=== PATIENT | male | born 1995 | race Caucasian/White ===

== ENCOUNTER 2020-10-09 15:00 | Emergency (ER) | payer SELFPAY ==
[2020-10-09 18:08] VITALS: BP 144/75; PULSE 57; RESP 16; TEMP 37.5; O2SAT 95; BMI 39.1
--- NOTE | 2020-10-09 19:29 | XR_ITS ---
EXAMINATION: XR KNEE, LEFT CLINICAL INFORMATION: Popping pain in the knee COMPARISON: 10/31/2015 TECHNIQUE: Four views of the left knee. FINDINGS: Bones and soft tissues are normal aside from some tiny marginal osteophytes on the tibial plateau slightly worse than in 2015. No significant compartmental narrowing is seen. No fracture or joint effusion. Alignment is anatomic. No abnormal soft tissue calcification. XR/XR knee LT 4V IMPRESSION: Some minimal marginal tibial osteophytes.
--- NOTE | 2020-10-09 19:30 | ED.LOWEXIN ---
HPI - Extremity Injury (Lower) General Chief Complaint: Extremity Injury, Lower Stated Complaint: L KNEE PAIN,HEARD POP WHILE WALKING,NO DEFORMITY Time Seen by Provider: 10/09/20 19:29 Source: patient Mode of arrival: wheelchair Limitations: no limitations History of Present Illness HPI Narrative: 24 y/o male presenting with left knee pain after he heard a popping sound while he was walking today. After a few moments he was able to bear weight and ambulate. He has a history of ACL tear and he states this does not feel similar. No ankle or hip pain. Patient reports mild swelling of the knee and pain on the inside when he touches it or straightens it out all the way. MD complaint: knee injury Injury: Left: knee (pain with extension and flexsion ) Type of Injury: unknown Place: home Severity: moderate Severity scale (1-10): 4 Relieving factors: nothing Exacerbating factors: weight bearing, movement and palpation Context: walking Associated symptoms: snap/pop sensation Other symptoms: none Related Data Previous Rx's Medication Instructions Recorded ibuprofen 600 mg PO Q8H PRN #20 tab 10/09/20 Allergies Allergy/AdvReac Type Severity Reaction Status Date / Time No Known Allergies Allergy Verified 10/09/20 19:11 [No Known Allergies*] Review of Systems Review of Systems: Cardiovascular: No Chest Pain, No SOB Respiratory: No Cough, No Sputum, Musculoskeletal: + joint pain, No Myalgias Skin: No Skin Lesions, No rash Neuro: No Weakness, No Numbness Heme/Lymph: No Bruising PMFSH Past Medical History Attestation statement: The following information was validated with the patient. Medical History (Updated 10/09/20 @ 20:27 by JUAN Aviles) No known health problems Social History Social History Advance Directives: No Advance Directives Information Provided: No Physical Exam Vital Signs: Vital Signs: Last Vital Signs Temp 99.5 F 10/09/20 18:08 Pulse 57 10/09/20 18:08 Resp 16 10/09/20 18:08 BP 144/75 H 10/09/20 18:08 Pulse Ox 95 10/09/20 18:08 Body Mass Index 39.1 Appearance: Alert. Oriented X3. No acute distress. HEENT: normal inspection Respiratory: No respiratory distress. Skin: Skin warm and dry. Normal skin color. Normal skin turgor. No rashes. Extremities: left knee with mild generalized swelling, tenderness along medial joint line. anterior drawer test negative. no joint laxity. ambulates with very mild limp. Neuro: Oriented X 3. No motor deficit. No sensory deficit. Course Course Course Narrative: 24 y/o here with left knee pain after hearing a pop while walking. Able to ambulate and bear weight. Mild swelling. XR showed minimal marginal tibial ostephytes. Etiology of pain likely MCL sprain. Possible tear or menincus injury. Patient encouraged to f/u with his orthopedist if no improvement in his pain. RICE therapy discussed. He is stable for discharge. Patient agrees with plan. Critical Care Time Critical Care Time Critical Care Time: No Discharge Plan Discharge Clinical Impression: Knee sprain Qualifiers: Encounter type: initial encounter Involved ligament of knee: medial collateral ligament Laterality: left Qualified Code(s): S83.412A - Sprain of medial collateral ligament of left knee, initial encounter Patient Disposition: Home, Self-Care Instructions: Knee Sprain (ED) Additional Instructions: Rest. Use ice several times per day and elevate your knee to help with swelling and discomfort. Weight bearing as tolerated. If no improvement in 1 week follow up with Orthopedics for further evaluation. Prescriptions: New ibuprofen 600 mg tablet 600 mg PO Q8H PRN (Reason: pain) Qty: 20 RF: 0 Referrals: Bolivar Mitchell MD [Physician] - 1 week Stand Alone Forms: Work/School Release
== END 2020-10-09 20:50 | disposition home or self-care (01) ==
PROVIDERS: Emergency Provider Internal Medicine
DX: S83.412A Sprain of medial collateral ligament of left knee, initial encounter (principal); M25.562 Pain in left knee; X50.1XXA Overexertion from prolonged static or awkward postures, initial encounter; Y93.01 Activity, walking, marching and hiking; Y92.9 Unspecified place or not applicable; Y99.9 Unspecified external cause status
CPT/HCPCS: 73564; 99283

== ENCOUNTER 2020-11-15 13:04 | Outpatient (REF) | payer OTHER, SELFPAY | END 2020-11-15 13:05 | disposition home or self-care (01) | LOC: HO.LAB 13:04 | PROVIDERS: Visit Provider Internal Medicine | DX: Z20.828 Contact with and (suspected) exposure to other viral communicable diseases (principal) | CPT/HCPCS: C9803; U0003 ==

== ENCOUNTER 2020-11-29 16:10 | Outpatient (REF) | payer OTHER, SELFPAY | END 2020-11-29 16:11 | disposition home or self-care (01) | LOC: HO.LAB 16:10 | PROVIDERS: Visit Provider Internal Medicine | DX: Z20.828 Contact with and (suspected) exposure to other viral communicable diseases (principal) | CPT/HCPCS: 36415; C9803; U0003 ==

== ENCOUNTER 2023-09-30 01:45 | Emergency (ER) | payer BC, SELFPAY ==
[2023-09-30 01:47] VITALS: BP 137/83; PULSE 48; RESP 20; TEMP 37.1; O2SAT 98; BMI 39.3
[2023-09-30 03:18] VITALS: BP 146/97; PULSE 57; RESP 18; TEMP 37.1; O2SAT 98
--- NOTE | 2023-09-30 03:19 | PC.NURSE ---
pt a&ox4, respirations even and unlabored. pt reports getting a tooth filling and that the filling has now come off and is having left molar pain that radiates into his left lower neck. pt reports having trouble eating a drinking due to sensitivity of the tooth. pt reports being on antibiotics but reports no relief of pain. pt reports having dentist appointment in November. pt reports he has taken a lot of tylenol and ibuprofen without relief.
== END 2023-09-30 06:42 | disposition left against medical advice (07) ==
PROVIDERS: Emergency Provider Emergency Medicine
DX: K08.89 Other specified disorders of teeth and supporting structures (principal); Z53.21 Procedure and treatment not carried out due to patient leaving prior to being seen by health care provider
CPT/HCPCS: 99281; 99283